=== PATIENT | male | born 1980 | race Two or more races ===

== ENCOUNTER 2017-07-28 01:03 | Emergency (ER) | payer MEDICAID ==
[~2017-07-28] VITALS: Ht 177.8 cm; Wt 145.1 kg
[2017-07-28 01:13] VITALS: BP 135/82
== END 2017-07-28 03:23 ==
LOC: ER 01:03
DX: Z76.1 Encounter for health supervision and care of foundling (principal); Z02.2 Encounter for examination for admission to residential institution; F12.10 Cannabis abuse, uncomplicated; Z88.0 Allergy status to penicillin